=== PATIENT | male | born 1970 | race American Indian/Alaskan Native ===

== ENCOUNTER 2018-08-24 11:35 | Emergency (ER) | payer OTHER ==
[2018-08-24 11:49] VITALS: BP 156/112
--- NOTE | 2018-08-24 11:50 | Emergency Department Report ---
Chief Complaint: Upper Respiratory Infection Stated Complaint: SINUS PROBLEMS Time Seen by Provider: 08/24/18 11:47 - HPI History of Present Illness: This is a 47 y.o. male that presents with headache, coryza, and scratchy throat x 2 days. He tried antihistamines with no improvement of symptoms. PMH: HTN - Exam Vital Signs: Vital Signs 08/24/18 11:47 Temperature 98.3 F Pulse Rate 96 H Respiratory 18 Rate Blood Pressure 156/112 O2 Sat by Pulse 98 Oximetry MSE screening note: Focused history and physical exam performed. Due to findings the following was ordered: ACC further evaluation. ED Disposition for MSE Condition: Stable
--- NOTE | 2018-08-24 14:39 | Emergency Department Report ---
- General Chief Complaint: Upper Respiratory Infection Stated Complaint: SINUS PROBLEMS Time Seen by Provider: 08/24/18 11:47 Source: patient Mode of arrival: Ambulatory Limitations: No Limitations - History of Present Illness Initial Comments: Mr. Thurman is a very pleasant 47 yo male without significant medical hx other than tobacco abuse who presents with facial pressure, nasal congestion, scratchy throat, productive cough. Symptoms for several days. He feels that the pollen has exacerbated these symptoms. MD Complaint: cough, sore throat, nasal congestion, sinus pain -: Gradual, days(s) (several) Severity: moderate Quality: dull Consistency: constant Improves With: nothing Associated Symptoms: chills, myalgias - Related Data Previous Rx's Medication Instructions Recorded Last Taken Type Doxycycline Hyclate [Vibramycin] 100 mg PO BID 7 Days #14 capsule 08/24/18 Unknown Rx Fluticasone [Flonase] 2 spray NS QDAY 7 Days #1 bottle 08/24/18 Unknown Rx Loratadine 10 mg PO DAILY 30 Days #30 capsule 08/24/18 Unknown Rx Allergies Allergy/AdvReac Type Severity Reaction Status Date / Time No Known Allergies Allergy Unverified 08/24/18 11:36 ED Review of Systems ROS: Stated complaint: SINUS PROBLEMS Other details as noted in HPI Constitutional: chills, malaise ENT: throat pain, congestion. denies: ear pain Respiratory: cough. denies: shortness of breath, other Cardiovascular: denies: chest pain Neurological: headache ED Past Medical Hx - Past Medical History Previous Medical History?: No - Surgical History Past Surgical History?: No - Social History Smoking Status: Light Tobacco Smoker Substance Use Type: None - Medications Home Medications: Home Medications Medication Instructions Recorded Confirmed Last Taken Type Doxycycline Hyclate [Vibramycin] 100 mg PO BID 7 Days #14 capsule 08/24/18 Unknown Rx Fluticasone [Flonase] 2 spray NS QDAY 7 Days #1 bottle 08/24/18 Unknown Rx Loratadine 10 mg PO DAILY 30 Days #30 capsule 08/24/18 Unknown Rx ED Physical Exam - General Limitations: No Limitations General appearance: alert, in no apparent distress - Head Head exam: Present: atraumatic, normocephalic - Eye Eye exam: Present: normal appearance. Absent: scleral icterus, conjunctival injection - ENT ENT exam: Present: mucous membranes moist - Neck Neck exam: Present: normal inspection. Absent: tenderness, meningismus - Respiratory Respiratory exam: Present: normal lung sounds bilaterally. Absent: respiratory distress, wheezes, rales, rhonchi - Cardiovascular Cardiovascular Exam: Present: regular rate, normal rhythm, normal heart sounds. Absent: systolic murmur, diastolic murmur, rubs, gallop - GI/Abdominal GI/Abdominal exam: Present: soft, normal bowel sounds. Absent: distended, tenderness, guarding, rebound - Rectal Rectal exam: Present: deferred - Extremities Exam Extremities exam: Present: normal inspection - Back Exam Back exam: Present: normal inspection - Neurological Exam Neurological exam: Present: alert, oriented X3 - Psychiatric Psychiatric exam: Present: normal affect, normal mood - Skin Skin exam: Present: warm, dry, intact, normal color. Absent: rash ED Course Vital Signs 08/24/18 11:47 Temperature 98.3 F Pulse Rate 96 H Respiratory 18 Rate Blood Pressure 156/112 O2 Sat by Pulse 98 Oximetry ED Medical Decision Making - Medical Decision Making URI vs allergic rhinitis vs acute on chronic bronchitis, with hx of tobacco abuse, antibiotics are indicated rx: loratadine, OTC flonase, doxycyline Critical care attestation.: If time is entered above; I have spent that time in minutes in the direct care of this critically ill patient, excluding procedure time. ED Disposition Clinical Impression: Allergic rhinitis, Acute bronchitis, Acute sinusitis, URI (upper respiratory infection), Tobacco abuse Disposition: -01 TO HOME OR SELFCARE Is pt being admited?: No Does the pt Need Aspirin: No Condition: Stable Instructions: Acute Bronchitis (ED), Sinusitis (ED) Prescriptions: Fluticasone [Flonase] 2 spray NS QDAY 7 Days #1 bottle Loratadine 10 mg PO DAILY 30 Days #30 capsule Doxycycline Hyclate [Vibramycin] 100 mg PO BID 7 Days #14 capsule Referrals: DESTINY BOYLE MD [Primary Care Provider] - 3-5 Days
[2018-08-24] MEDS ORDERED: TYLENOL #3 PO STA (14:42)
[2018-08-24] MEDS ORDERED: VIBRAMYCIN PO STA (14:42)
== END 2018-08-24 14:50 | disposition home or self-care (01) ==
LOC: ED 11:35
DX: J01.90 Acute sinusitis, unspecified (principal); J20.9 Acute bronchitis, unspecified; F17.200 Nicotine dependence, unspecified, uncomplicated
CPT/HCPCS: 99282